=== PATIENT | female | born 1980 ===

== ENCOUNTER 2019-03-09 14:35 | Inpatient (IN) | payer MEDICAID ==
[2019-03-09] MEDS ORDERED: OLIVE OIL 118 ML BTL MISC PRN (15:20)
[2019-03-09] MEDS ORDERED: LIDOCAINE 1% 300 MG/30 ML SDV SC PRN (15:20)
[2019-03-09] MEDS ORDERED: EPSOM SALT 454 GM TP PRN (15:20)
[2019-03-09] MEDS ORDERED: MISOPROSTOL 200 MCG TAB PR PRN (15:20)
[2019-03-09] MEDS ORDERED: LR 1,000 ML IV PRN (15:20)
[2019-03-09] MEDS ORDERED: IBUPROFEN 600 MG TAB PO PRN (15:20)
[2019-03-09] MEDS ORDERED: OXYTOCIN/RINGERS LACTATE 1,000 ML IV PRN (15:20)
--- NOTE | 2019-03-09 15:21 | PDGENHP ---
History and Physical History and Physical: CARE: [facility] HPI: Patient is a 39 yo G 1 @ 39.4 weeks aga who presents to L&D in active labor after SROM yesterday - clear fluid - at 1430 yesterday afternoon. She declined IOL and preferred for labor to start on its own. She started having regular contractions this afternoon at 1330 and she quickly became very uncomfortable. She was leaking clear fluid with some bloody show noted. EFM reactive - so monitor removed for intermittent monitoring. SVE station. EDC: 03/12/19 which is based on LMP: 06/05/18 which is known and consistent with Ultrasound at 7 weeks. Her is complicated by: - AMA Review of Systems: Constitutional: Denies any fever, chills, or fatigue HEENT: denies any visual changes, difficulty swallowing, hearing loss Cardiovascular: Denies any chest pain, palpitations, leg swelling Respiratory: denies any cough, wheezing, or shortness of breathe GI: Denies any nausea, vomiting, diarrhea, constipation : denies any dysuria, urgency, frequency, vaginal bleeding Musculoskeletal: denies any muscle or bone pain Skin: denies any rashes Neuro: denies any headache, seizures, lightheadedness, dizziness, or loss of consciousness Psychiatric: denies any depression, anxiety, or SI/HI thoughts HISTORY: Previous OB history: none Past medical history: ASCU pap with neg colpo 04/09 - will repeat pp. Past surgical history: none Medications: PNV Allergies (list reaction): NKDA LABS: Rh: O pos ABS: Neg Rubella: Immune HbsAg: NR HIV: NR VDRL: NR 1hr: 102 GC: Neg Chlamydia: Neg GBS: neg PHYSICAL EXAM: Constitutional: WN, A&Ox3 Skin: pink, warm, dry HEENT: normocephalic atraumatic, supple Heart: RRR, no murmur Chest: CTA-B Abdomen: Soft, nontender, gravid SVE: station Extremities: tr edema, negative homar's sign Neuro: grossly normal Psych: normal affect assessment: Reassuring FHTs, baseline 120s +accels, no decels, moderate variability Contractions: toco q 2-3 Assessment: 1) 39 yo G 1 with IUP@ 39.4 weeks ega 2) active labor 3) GBS neg 4) Cat 1 FHR tracing Plan: 1) Admit to L&D 2) intermittent monitoring per policy 3) Pain control as patient desires 4) Anticipate imminent
[2019-03-09] MEDS ORDERED: LIDOCAINE 1% 300 MG/30 ML SDV ONE (15:44)
[2019-03-09] MEDS ORDERED: TERBUTALINE SULFATE 1 MG/ML VIAL ONE (15:44)
[2019-03-09] MEDS ORDERED: OLIVE OIL 118 ML BTL MISC ONE (15:44)
[2019-03-09] MEDS ORDERED: AMMONIA AROMATIC 1 EACH AMP IH ONE (15:44)
[2019-03-09] MEDS ORDERED: OXYTOCIN 10 UNIT/ML VIAL ONE (15:45)
[2019-03-09] MEDS ORDERED: MISOPROSTOL 200 MCG TAB ONE (15:45)
--- NOTE | 2019-03-09 17:09 | OBDEL ---
Info Type: Vaginal Presentation at Delivery: Vertex L&D Analgesia/Anesthesia Type: None GBS+: No Indications for Delivery: Spontaneous Labor Vaginal Delivery - Delivery Provider Delivery Physician/CNM: Elsa Sparks - Labor and Delivery Onset of Contractions Date: 03/09/19 Onset of Contractions Time: 13:30 Onset of Contractions Type: Spontaneous Rupture of Membranes Date: 03/08/19 Rupture of Membranes Time: 14:30 Rupture of Membranes Type: Spontaneous Amniotic Fluid Color: Clear Dilation Complete Date: 03/09/19 Dilation Complete Time: 15:43 Placenta Delivery Date: 03/09/19 Placenta Delivery Time: 16:48 Total Hours of Labor: 3 Vaginal Sponge Count Correct: Yes Vaginal Needle Count Correct: Yes Vaginal Sweep Performed: Yes EBL: 150 Delivery Events: None - Medications Labor Augmentation/Induction Methods Used: None Data MARY: 03/12/19 Gestational Age: 39 week(s) and 4 day(s) [place] Delivery Date: 03/09/19 Delivery Time: 16:42 Sex of : Female Score (1 Min): 8 Score (5 Min): 9 ICD10 Worksheet Patient Problems: Problems Problem Status Onset AMA (advanced maternal age) primigravida 35+ Acute Vaginal delivery Acute - ICD10 Problem Qualifiers (1) Vaginal delivery (2) AMA (advanced maternal age) primigravida 35+
[2019-03-09] MEDS ORDERED: SIMETHICONE 80 MG TAB CHEW PO PRN (18:21)
[2019-03-09] MEDS ORDERED: HYDROCODONE/APAP 5/325 TAB PO PRN (18:21)
[2019-03-09] MEDS ORDERED: HYDROCORTISONE 0.5% CREAM TP PRN (18:21)
[2019-03-10] MEDS: ACETAMINOPHEN 325 MG TAB PO PRN ×4 (00:03→20:14)
[2019-03-10] MEDS: IBUPROFEN 600 MG TAB PO PRN ×4 (00:03→20:15)
--- NOTE | 2019-03-10 09:12 | OBPP ---
Progress Note Assessment/Plan: Assessment: 1. First PP day 2. Plan: 1. support 2. D/C home tomorrow 03/10/19 09:11 Subjective/ Course: 03/10/19 09:11 pt feeling well. Bleeding wnl. Voiding w/o difficulty. BF with minimal assistance. Pain management effective. Objective: Temp Pulse Resp BP Pulse Ox 37.2 C 68 16 106/59 L 95 03/09/19 22:30 03/09/19 22:30 03/09/19 22:30 03/09/19 22:30 03/09/19 22:30 VSS Uterine Position/Fundal Height: At Umbilicus Uterine Tone: Firm
[2019-03-10] MEDS: DOCUSATE SODIUM 100 MG CAP PO PRN ×2 (09:28→20:15)
[2019-03-11] MEDS: IBUPROFEN 600 MG TAB PO PRN ×3 (02:29→14:51)
[2019-03-11] MEDS: ACETAMINOPHEN 325 MG TAB PO PRN (09:12)
[2019-03-11] MEDS: DOCUSATE SODIUM 100 MG CAP PO PRN (09:12)
[2019-03-11 09:26] VITALS: BP 127/75
--- NOTE | 2019-03-11 10:57 | OBGCSDC ---
General Delivery Information - General Info : 1 Para: 1 Abortions: 0 Type: Vaginal L&D Analgesia/Anesthesia Type: None Admission Date: 03/09/19 - Hospital Course : 03/10/19 09:11 pt feeling well. Bleeding wnl. Voiding w/o difficulty. BF with minimal assistance. Pain management effective. 03/11/19 09:00 S) Pt doing well, reports min pain and bleeding. she is ambulating and voiding without difficulty. She is . She desires discharge home today. O) VSS, afebrile constitutional: WNF, A&Ox3 HEENT: normocephalic, atraumatic, supple Heart: RRR, No murmur Chest: CTA-B Breasts: soft, nontender,not engorged, nipples intact/normal Abdomen: Soft, nontender Uterus: Firm at U-2 Lochia: Minimal rubra Perineum: Intact, healing well Extremities: Trace edema, and negative Vivian's sign Neuro: Grossly normal A) 39-year-old S/P PPD#2 P) Discharge home today Continue Pelvic rest x6wks Discussed danger signs (infection, preeclampsia, depression, heavy bleeding, etc ) RTO in 2/4/6 weeks Vaginal - Delivery Provider Delivery Physician/CNM: Elsa Sparks - Diagnosis Labor: Spontaneous Rupture of Membranes Type: Spontaneous Amniotic Fluid Color: Clear Delivery Events: None - Delivery EBL: 150 Data MARY: 03/12/19 Gestational Age: 39 week(s) and 6 day(s) [place] Delivery Date: 03/09/19 Delivery Time: 16:42 Sex of Infant: Female Varney Weight (gm): 3652 g Score (1 Min): 8 Score (5 Min): 9 Discharge Information - Discharge Information Condition: Good
== END 2019-03-11 16:00 | disposition home or self-care (01) | DRG 560 ==
LOC: FLD 14:35 → FOB 19:50
PROVIDERS: ADMIT Advanced Practice Midwife; ATTEND Advanced Practice Midwife
PROC: 10E0XZZ Delivery of Products of Conception, External Approach (ICD-10-PCS; principal; 2019-03-09)
DX: O80 Encounter for full-term uncomplicated delivery (principal); Z37.0 Single live birth; Z3A.39 39 weeks gestation of pregnancy
CPT/HCPCS: J2590; J3105